=== PATIENT | male | born 1995 | race Caucasian/White ===

== ENCOUNTER → 2021-05-27 | Outpatient (CLI) | payer OTHER ==
[~2021-05-27] MED LIST: ANTIBIOTIC O500 U/GM T; CLINDAMYCIN150 MG PO; DELTASONE10 MG PO; FLEXERIL5 MG PO; NKHM PO
== END | disposition home or self-care (01) ==
LOC: COVID19 15:01
PROVIDERS: ATTEND Internal Medicine
DX: Z20.822 Contact with and (suspected) exposure to COVID-19 (principal)

== ENCOUNTER → 2022-12-01 | Outpatient (CLI) | payer OTHER | END | disposition home or self-care (01) | LOC: US 11-28 14:00 | PROVIDERS: ATTEND Nurse Practitioner | DX: R22.2 Localized swelling, mass and lump, trunk (principal) ==